=== PATIENT | male | born 1945 ===

== ENCOUNTER 2018-10-30 09:39 | Outpatient (CLI) | payer OTHER ==
[~2018-10-30] VITALS: Ht 170.2 cm; Wt 77.1 kg
[2018-10-30] MEDS ORDERED: FLONASE16 GM NASAL (12:09)
[2018-10-30] MEDS ORDERED: CEFUROXIME500 MG PO (12:09)
== END 2018-10-30 14:50 | disposition home or self-care (01) ==
LOC: OFIC 805 09:39
DX: H70.11 Chronic mastoiditis, right ear (principal); H69.81 Other specified disorders of Eustachian tube, right ear; J32.8 Other chronic sinusitis; J34.2 Deviated nasal septum; J04.0 Acute laryngitis

== ENCOUNTER → 2018-11-27 | Outpatient (CLI) | payer OTHER ==
[~2018-11-27] VITALS: Ht 152.4 cm; Wt 77.1 kg
[~2018-11-27] MED LIST: CEFUROXIME500 MG PO; FLONASE16 GM NASAL
== END | disposition home or self-care (01) ==
LOC: OFIC 805 08:10
DX: H70.11 Chronic mastoiditis, right ear (principal); H69.91 Unspecified Eustachian tube disorder, right ear; J32.8 Other chronic sinusitis; J34.2 Deviated nasal septum; H91.11 Presbycusis, right ear